=== PATIENT | female | born 1990 | race Caucasian/White ===

== ENCOUNTER 2022-07-10 16:48 | Emergency (ER) | payer BC ==
[~2022-07-10] VITALS: Ht 165.1 cm; Wt 53.1 kg
[2022-07-10] MEDS ORDERED: KETOROLAC TROMETHAMINE 30 MG INJ ONE (17:28)
[2022-07-10] MEDS ORDERED: PROCHLORPERAZINE EDISYLATE 10 MG/2 ML VIAL ONE (17:28)
[2022-07-10] MEDS ORDERED: KETOROLAC TROMETHAMINE 30 MG INJ IVP ONE (17:30)
[2022-07-10] MEDS ORDERED: IV NORMAL SALINE 1000 ML BAG IV ONE (17:30)
[2022-07-10] MEDS ORDERED: PROCHLORPERAZINE EDISYLATE 10 MG/2 ML VIAL IV ONE (17:30)
[2022-07-10 17:31] LABS: HEMATOCRIT 41.1 % (31.2-41.9); MEAN CORPUSCULAR HEMOGLOBIN 32.2 uug (24.7-32.8); MEAN CORPUSCULAR VOLUME 93.4 fL (75.5-95.3); PLATELET COUNT (AUTO) 257 K/uL (179-408)
[2022-07-10 17:46] LABS: CREATININE 0.6 mg/dL (0.6-1.3); POTASSIUM 3.3 mmol/L (3.5-5.1)
[2022-07-10 17:51] LABS: BILIRUBIN,DIRECT 0.1 mg/dL (0.0-0.2); BILIRUBIN,TOTAL 0.8 mg/dL (0.2-1.0); TOTAL PROTEIN, SERUM 7.2 g/dL (6.4-8.2)
[2022-07-10] MEDS ORDERED: POTASSIUM CHLORIDE 20 MEQ TAB.PRT.SR PO ONE (18:00)
[2022-07-10] MEDS ORDERED: PROC-11 PO (18:10)
[2022-07-10] MEDS ORDERED: NAPR-1164 PO (18:10)
[2022-07-10 18:46] VITALS: BP 116/60
== END 2022-07-10 18:47 | disposition home or self-care (01) ==
LOC: ER 16:51
DX: R51.9 Headache, unspecified (principal); R11.2 Nausea with vomiting, unspecified
CPT/HCPCS: 99284; 96374; 96375; 80076; 80048; 83690; 85025; 36415; J1885; J0780; J7040; A4663